=== PATIENT | female | born 1955 | race Caucasian/White ===

== ENCOUNTER 2018-07-28 14:17 | Emergency (ER) | payer OTHER ==
[~2018-07-28] VITALS: Ht 157.5 cm; Wt 45.4 kg
[2018-07-28 14:22] VITALS: Ht 157.5 cm; Wt 45.4 kg
[2018-07-28 15:02] LABS: BASOPHIL % 0.4 % (0-2); PLATELET COUNT 177 x10^3mcL (130-400); RED CELL DISTRIBUTION WIDTH 13.8 % (11.5-14.5)
[2018-07-28 15:14] LABS: CARBON DIOXIDE 31.1 mmol/L (21-32); CHLORIDE SERUM 122 mmol/L (98-107); CREATININE SERUM 0.8 mg/dL (0.6-1.0); GFR1 > 60 mL/min; GLUCOSE SERUM 97 mg/dL (74-106); POTASSIUM SERUM 4.4 mmol/L (3.5-5.1); SODIUM SERUM 156 mmol/L (136-145)
[2018-07-28 15:18] LABS: ALKALINE PHOSPHATASE 94 U/L (46-116); ALT/SGPT 19 U/L (14-59); AST/SGOT 17 U/L (15-37); HDL CHOLESTEROL 58 mg/dL (40-60); LIPASE 174 IU/L (73-393); TOTAL PROTEIN, SERUM 7.4 g/dL (6.4-8.2); TRIGLYCERIDES 61 mg/dL (<150)
[2018-07-28 15:20] LABS: ALBUMIN 3.1 g/dL (3.4-5.0); CHOLESTEROL 131 mg/dL (<200); CHOLESTEROL/HDL RATIO 2.3
[2018-07-28 15:46] LABS: UA SPECIFIC GRAVITY 1.015 (1.005-1.035); microscopic required? YES; urine erythrocyte TRACE (NEGATIVE)
[2018-07-28 16:25] LABS: BILIRUBIN TOTAL 0.16 mg/dL (0.20-1.00)
[2018-07-28 17:13] LABS: FREE T4 0.98 ng/dL (0.76-1.46); FREE THYROXINE INDEX 2.9 ug/dL (1.4-4.5)
[2018-07-28 17:38] VITALS: BP 178/106
[2018-07-29 09:13] LABS: T3 TOTAL 1.56 ng/mL
== END 2018-07-28 17:38 | disposition home or self-care (01) ==
LOC: ED 14:17
PROVIDERS: Specialist
DX: J20.9 Acute bronchitis, unspecified (principal); F17.210 Nicotine dependence, cigarettes, uncomplicated; I10 Essential (primary) hypertension; F03.90 Unspecified dementia, unspecified severity, without behavioral disturbance, psychotic disturbance, mood disturbance, and anxiety; Z88.6 Allergy status to analgesic agent
CPT/HCPCS: 83880; 84439; 87804; 99406; J0696; J1885; J7030; Q0092